=== PATIENT | female | born 2000 | race Caucasian/White ===

== ENCOUNTER 2019-01-01 22:45 | Emergency (ER) | payer OTHER ==
[~2019-01-01] VITALS: Ht 160 cm; Wt 63.2 kg
[2019-01-01 23:49] LABS: CALCIUM 8.2 mg/dL (8.5-10.1); CHLORIDE SERUM 104 mmol/L (98-107); CREATININE SERUM 0.6 mg/dL (0.6-1.0); GFR1 > 60 mL/min; GLUCOSE SERUM 113 mg/dL (74-106); POTASSIUM SERUM 3.6 mmol/L (3.5-5.1); SODIUM SERUM 141 mmol/L (136-145)
[2019-01-01 23:55] LABS: ALKALINE PHOSPHATASE 68 U/L (46-116); ALT/SGPT 29 U/L (14-59); AST/SGOT 19 U/L (15-37); BILIRUBIN TOTAL 0.3 mg/dL (0.20-1.00); LIPASE 68 IU/L (73-393); TOTAL PROTEIN, SERUM 7.8 g/dL (6.4-8.2)
[2019-01-02 00:03] LABS: BASOPHIL % 0.3 % (0-2); PLATELET COUNT 211 x10^3mcL (130-400); RED CELL DISTRIBUTION WIDTH 12.6 % (11.5-14.5)
[2019-01-02 00:05] LABS: UA SPECIFIC GRAVITY 1.015 (1.005-1.035); microscopic required? YES; urine erythrocyte NEGATIVE (NEGATIVE)
[2019-01-02 03:17] VITALS: BP 119/74
== END 2019-01-02 03:17 | disposition home or self-care (01) ==
LOC: ED 22:45
PROVIDERS: Emergency Medicine
DX: N83.202 Unspecified ovarian cyst, left side (principal)
CPT/HCPCS: J1885; J2405; J7030